=== PATIENT | female | born 1940 | race Caucasian/White ===

== ENCOUNTER → 2017-02-22 | Outpatient (CLI) | payer MEDICARE, OTHER ==
--- NOTE | 2017-02-22 14:39 | KCIC ---
Bilateral digital screening mammograms with CAD: HISTORY Routine screening COMPARISON Comparison is made to previous examinations dated 03/14/2015 and 08/23/2012. FINDINGS Breast density category C. The skin and nipples show no abnormalities. No abnormal lymph nodes are seen in the axilla. The breast parenchyma shows heterogeneous density. 6.6 millimeter circumscribed nodule posterior laterally at approximately the 230 C position of the left breast. This may represent a cyst but recommend further evaluation with ultrasound. There are no other dominant masses, suspicious calcifications or architectural distortions. IMPRESSION Small circumscribed nodule suggested posterior laterally at the 230 C position of the left breast and measuring approximately 6.6 millimeters in size. Recommend further evaluation with ultrasound. This study was interpreted with the benefit of Computerized Aided Detection (CAD). Mammography is not 100% sensitive in detecting breast cancer. Therefore, a self breast exam and a clinical breast exam are very important. A negative mammogram does not negate a clinically suspicious finding and should not result in a delay in biopsying a clinically suspicious abnormality. BI-RADS category 0: Incomplete. Ultrasound followup is recommended. This patient's information has been entered into a reminder system for the patient to be notified with the results of this examination and a target date for her next mammograms. Electronically signed by: Candace Rojas MD (February 22, 2017 14:37:52)
== END | disposition home or self-care (01) ==
LOC: KCIC MAMMO 12:23
PROVIDERS: ATTEND Family Medicine
DX: Z12.31 Encounter for screening mammogram for malignant neoplasm of breast (principal)
CPT/HCPCS: G0202; 77067

== ENCOUNTER → 2017-03-02 | Outpatient (CLI) | payer MEDICARE, OTHER ==
--- NOTE | 2017-03-02 16:38 | KCIC ---
Left breast ultrasound: Reason for examination: Nodule on screening mammogram. Comparison is made to mammographic exam dated 02/22/2017. Ultrasound examination of the left breast was performed in the area of mammographic concern and at the left axilla. In the 2:00 position 5.5 cm from the nipple and appearing to correspond with the area of mammographic concern, there is a 6 mm hypoechoic lesion with slightly lobulated contour. Further evaluation with ultrasound-guided biopsy is recommended. There are no other cystic or solid lesions seen. No abnormal appearing lymph nodes are seen in the axilla. IMPRESSION: 6 mm nodule with a lobulated contour at the 2:00 position. Further evaluation with ultrasound-guided biopsy is recommended. BI-RADS Category 4: Suspicious. These findings have been discussed with the patient and the patient's physician will be notified about these findings when the office reopens on 03/03/2017. "Our facility is accredited by the [employer] Mammography [employer]." This patient's information has been entered into a reminder system for the patient to be notified with the results of her examination and a target date for the next mammogram. Electronically signed by: Sarahi Rojas MD (03/02/2017 4:36 PM)
== END | disposition home or self-care (01) ==
LOC: KCIC US 10:26
PROVIDERS: ATTEND Family Medicine
DX: R92.8 Other abnormal and inconclusive findings on diagnostic imaging of breast (principal)
CPT/HCPCS: 76641

== ENCOUNTER → 2017-03-14 | Outpatient (CLI) | payer MEDICARE, OTHER ==
[~2017-03-14] VITALS: Ht 162.6 cm; Wt 59.0 kg
[~2017-03-14] MED LIST: CHLO1CAP PO; DICY20TA3 PO; FENO160T PO; LATA2.5D3 OP; LIDOCAINE 2%/EPI 1:100,000 20 ML VIAL. IJ ONE; LISI1TAB3 PO
--- NOTE | 2017-03-16 13:40 | PATHOLOGY ---
PATHOLOGY REPORT * * * * * * * * FINAL DIAGNOSIS: Portion of breast "left breast mass", biopsy: - Fibrocystic changes with usual ductal hyperplasia without atypia, apocrine metaplasia and cyst formation; the largest area measures approximately 1 cm in greatest dimension. There is no evidence of atypia or malignancy. REPORT ELECTRONICALLY SIGNED BY: Fan Medrano M.D. DATE/TIME: 03/16/2017 13:40 * * * * * * * * GROSS PATHOLOGY: Received in formalin labeled "Antonia Schultz, left breast," are multiple needle cores of yellow-bird fibrofatty tissue measuring 2.1 x 1.1 x 0.3 cm in aggregate dimensions. The tissue is submitted in its entirety in cassettes A1-A2. The cold ischemic time is 5 minutes. The total formalin fixation time is 27 hours and 45 minutes. (TAMMY; 03/15/2017) INITIAL CPT CODE(S): A; 64299 Professional services [place] [address] Technical services performed by [facility] at [address] [place] [address]. SPECIMEN(S) RECEIVED: A.Left breast mass CLINICAL HISTORY: Left breast mass PATIENT: ANTONIA SCHULTZ /AGE: 1108/16/1940 (Age: 76) PATIENT #: [id number] ALT CASE #: SPECIMEN COLLECTION DATE: 03/14/2017 SPECIMEN RECEIVED DATE: 03/14/2017 [facility] - [address] [place] [address] - PHONE: [phone] * * * END OF REPORT * * *
--- NOTE | 2017-03-17 09:02 | RAD ---
Ultrasound-guided vacuum-assisted left breast biopsy, 03/14/2017: History: Suspicious nodule Previous studies demonstrated a suspicious nodule at the 2:00 location in the left breast. Under local anesthesia, aseptic conditions and sonographic guidance the [facility] biopsy assessment was passed into this nodule via a lateral approach. Multiple 12-gauge vacuum-assisted core samples were obtained. The nodule quickly disappeared during the biopsy process compatible with a predominantly cystic lesion. A biopsy marker was deposited at the biopsy site. The biopsy instrument was then removed and hemostasis obtained. Two-view postprocedural mammograms were then obtained to document position of the biopsy marker. The patient tolerated the procedure well and left the department in good condition. The subsequent pathology report indicated the presence of fibrocystic change without evidence of atypia or malignancy. This is a concordant finding.
== END | disposition home or self-care (01) ==
LOC: US 12:37
PROVIDERS: ATTEND Surgery
DX: R92.8 Other abnormal and inconclusive findings on diagnostic imaging of breast (principal)
CPT/HCPCS: 19081; 76942; C1713; G0206; 77065

== ENCOUNTER → 2018-04-13 | Outpatient (CLI) | payer MEDICARE, OTHER | END | disposition home or self-care (01) | LOC: KCIC MAMMO 09:58 | DX: Z12.31 Encounter for screening mammogram for malignant neoplasm of breast (principal) | CPT/HCPCS: 77063; 77067 ==

== ENCOUNTER → 2018-07-17 | Outpatient (CLI) | payer MEDICARE, OTHER ==
[~2018-07-17] MED LIST changes: -LIDOCAINE 2%/EPI 1:100,000 20 ML VIAL. IJ ONE
--- NOTE | 2018-07-17 14:52 | KCIC ---
Bone densitometry 07/17/2018 11:40 AM Indication: Postmenopausal screening exam Comparison Study: None available. Discussion: Bone Densitometry was performed with dual photon absorption of the lumbar spine and left proximal femur. Lumbar Spine: Bone average density is 0.851g/cm2 for L1-L4. T-Score is -1.8. Left femoral neck: Bone average density is 0.696g/cm2. T-Score is -2.0. IMPRESSION: Osteopenia. Note: Definitions established by the World Health Organization: Normal: T-score is -1.0 or above. Osteopenia: T-score is between -1.0 and -2.5. Osteoporosis: T-score is -2.5 or below. Electronically signed by: Brian Avendaño MD (07/17/2018 2:48 PM) [id number]
== END | disposition home or self-care (01) ==
LOC: KCIC DEXA 11:21
PROVIDERS: ATTEND Family Medicine
DX: Z13.820 Encounter for screening for osteoporosis (principal); M85.89 Other specified disorders of bone density and structure, multiple sites
CPT/HCPCS: 77080

== ENCOUNTER → 2019-05-02 | Outpatient (CLI) | payer MEDICARE, OTHER ==
--- NOTE | 2019-05-03 17:45 | KCIC ---
Bilateral digital screening mammograms with 3-D tomosynthesis: Reason for examination: Routine screening. Comparison is made to previous studies dated 04/13/2018 and 02/22/2017. Bilateral mammograms in CC and oblique projections were obtained with 2-D imaging and 3-D tomosynthesis imaging on a Siemens Inspiration unit and reviewed on the workstation. Interpretation was made with the benefit of CAD. The skin and nipples show no abnormalities. No abnormal axillary lymph nodes are seen. The breast parenchyma is extremely dense. (Breast density: Category D.) There are no dominant masses, suspicious calcifications or architectural distortion. Impression: No evidence of malignancy. Recommend routine screening. Your patient's mammogram demonstrates that she has dense breast tissue (breast density category C or D), which could hide abnormalities, and if she has other risk factors for breast cancer that have been identified, she might benefit from supplemental screening tests that may be suggested by you as her ordering physician. Dense breast tissue, in and of itself, is a relatively common condition. Therefore, this information is not provided to cause undue concern, but rather to raise your awareness and to promote discussion with your patient regarding the presence of other risk factors, in addition to dense breast tissue. Your patient's mammography results will be sent to her. BI-RAD Category 1: Negative. "Our facility is accredited by the [employer] Mammography [employer]." This patient's information has been entered into a reminder system for the patient to be notified with the results of her examination and a target date for the next mammogram. Electronically signed by: Sarahi Rojas MD (05/03/2019 5:43 PM) [id number]
== END | disposition home or self-care (01) ==
LOC: KCIC MAMMO 13:35
PROVIDERS: ATTEND Family Medicine
DX: Z12.31 Encounter for screening mammogram for malignant neoplasm of breast (principal)
CPT/HCPCS: 77063; 77067